=== PATIENT | male | born 1990 | race Two or more races ===

== ENCOUNTER 2025-01-06 08:47 | Emergency (ER) | payer SELFPAY ==
[2025-01-06] MEDS: Lidocaine 1% 10 ML MDV INJECT ONE (09:28)
== END 2025-01-06 09:53 | disposition home or self-care (01) ==
LOC: JD.ED 08:47
DX: S71.112A Laceration without foreign body, left thigh, initial encounter (principal); Z88.0 Allergy status to penicillin; W26.8XXA Contact with other sharp object(s), not elsewhere classified, initial encounter
CPT/HCPCS: 12001; 99282; J2003; 99283